=== PATIENT | female | born 1980 | race Caucasian/White ===

== ENCOUNTER 2017-06-27 14:08 | Emergency (ER) | payer MEDICAID ==
[~2017-06-27] VITALS: Ht 144.8 cm; Wt 59.4 kg
[~2017-06-27 14:08] MED LIST: CIPRO500 MG PO; LOP600 PO
[2017-06-27 14:57] VITALS: Ht 144.8 cm; Wt 59.4 kg
[2017-06-27 16:26] VITALS: BP 114/80
== END 2017-06-27 16:26 | disposition home or self-care (01) ==
LOC: ED 14:08
DX: H60.91 Unspecified otitis externa, right ear (principal)

== ENCOUNTER 2019-10-25 05:40 | Emergency (ER) | payer MEDICAID ==
[~2019-10-25] VITALS: Ht 154.9 cm; Wt 60.0 kg
[2019-10-25 05:51] VITALS: BP 109/76; Ht 154.9 cm; Wt 60.0 kg
== END 2019-10-25 08:52 | disposition home or self-care (01) ==
LOC: ED 05:40
DX: B34.9 Viral infection, unspecified (principal); Z20.828 Contact with and (suspected) exposure to other viral communicable diseases
CPT/HCPCS: 87804; Q0092; U0003-CS